=== PATIENT | male | born 1960 | race Caucasian/White ===

== ENCOUNTER 2022-01-30 15:35 | Outpatient (CLI) | payer BC ==
[2022-01-30 16:38] LABS: #Eosinphils 0.1 10x3/uL (0.0-0.5); #Monocytes 0.6 10x3/uL (0.0-1.1); %Basophils 0.3 % (0.0-2.0); %Eosinophils 1.5 % (0.0-6.0); %Lymphocytes 31.5 % (18.0-47.0); %Monocytes 8.5 % (0.0-10.0); %Neutrophils 57.9 % (40.0-75.0); Hemoglobin 15.4 g/dL (13.5-17.5); Mean Corpuscular HGB CONC 34.6 g/dL (32.0-36.0); Mean Corpuscular Hemoglobin 30.5 pg (27.0-33.0); Mean Corpuscular Volume 88.1 fl (81.2-95.1); Mean Platelet Volume 10.7 fl (7.4-10.4); Platelet Count 148 10x3/uL (150-450); RBC Distribution Width 12.9 % (11.5-14.5); Red Blood Cell (RBC) Count 5.05 10x6/uL (4.32-5.72); White Blood Cell (WBC) Count 6.8 10x3/uL (3.5-10.5)
[2022-01-30 16:49] LABS: Prothrombin Time 10.5 sec (9.5-12.1)
[2022-01-30 16:52] LABS: Anion Gap 15 mmol/L (10-20); BUN (Urea Nitrogen) 17 mg/dL (8.4-25.7); Calc. Creatinine Clearance 0 mL/min (70-130); Calcium 9.5 mg/dL (7.8-10.44); Carbon Dioxide 28 mmol/L (23-31); Chloride 102 mmol/L (98-107); Glucose 133 mg/dL (80-115); Potassium 4.4 mmol/L (3.5-5.1); Sodium 141 mmol/L (136-145)
[2022-01-31 00:19] LABS: SARS-CoV-2 PCR by NAA Not Detected (NotDetected)
== END 2022-01-30 15:36 | disposition home or self-care (01) ==
LOC: LABBT 15:35
PROVIDERS: ATTEND Orthopaedic Surgery
DX: Z01.812 Encounter for preprocedural laboratory examination (principal); M17.12 Unilateral primary osteoarthritis, left knee; Z20.822 Contact with and (suspected) exposure to COVID-19
CPT/HCPCS: 80048; 85025; 85610; 87081; U0003; U0005

== ENCOUNTER 2022-02-04 07:04 | Observation (INO) | payer BC ==
[2022-01-30 11:48] VITALS: BMI 37.2
[2022-02-04] MEDS ORDERED: Bupivacaine PF 0.5% 30 ML VIAL ONE ×2 (07:33→09:44)
[2022-02-04] MEDS ORDERED: Midazolam HCl 2 mg/2 ml Vial ONE (07:33)
[2022-02-04] MEDS ORDERED: Fentanyl 100 MCG/2 ML VIAL ONE ×2 (07:33→12:11)
[2022-02-04] MEDS ORDERED: VANCOMYCIN 2 GRAM/500 ML BAG 2 GM in Premix Bag 1 BAG IVPB SCH (08:00)
[2022-02-04] MEDS ORDERED: Fentanyl 100 MCG/2 ML VIAL SLOW IVP PRN (08:05)
[2022-02-04] MEDS ORDERED: Tranexamic Acid 1,000 MG/10 ML VIAL ONE (08:10)
[2022-02-04] MEDS ORDERED: Sodium Chloride 0.9% 100 ML ONE ×2 (08:10→09:27)
[2022-02-04] MEDS ORDERED: traMADol HCl 50 MG TAB PO PRN ×2 (08:15)
[2022-02-04] MEDS ORDERED: Ondansetron PF 4 MG/2 ML Vial IVP PRN (08:15)
[2022-02-04] MEDS ORDERED: Zolpidem Tartrate 5 MG TAB PO PRN (08:15)
[2022-02-04] MEDS ORDERED: HYDROcodone/Acetaminophen 10/325 mg Tablet PO PRN (08:15)
[2022-02-04] MEDS ORDERED: Promethazine HCl 25 MG/ML VIAL IM PRN (08:15)
[2022-02-04] MEDS ORDERED: Ropivacaine 0.2% 550 ML 550 ML NERVE BLCK SCH (08:15)
[2022-02-04] MEDS ORDERED: CEFAZOLIN 2 GM VIAL ONE (09:26)
[2022-02-04] MEDS ORDERED: Dexamethasone 20 MG/5 ML VIAL ONE (09:31)
[2022-02-04] MEDS ORDERED: Ondansetron PF 4 MG/2 ML Vial ONE (09:31)
[2022-02-04] MEDS ORDERED: Bupivacaine HCl 0.5%/Epinephrine 1:200,000/PF 30 ml Vial ONE (09:31)
[2022-02-04] MEDS ORDERED: Lidocaine 1% PF 5 ML VIAL ONE (09:31)
[2022-02-04] MEDS ORDERED: Ketorolac Tromethamine 30 MG/ML VIAL ONE (09:31)
[2022-02-04] MEDS ORDERED: PROPOFOL 200 MG/20 ML VIAL ONE (09:31)
[2022-02-04] MEDS ORDERED: ePHEDrine 50 MG/ML VIAL ONE (09:31)
[2022-02-04] MEDS ORDERED: Acetaminophen 325 MG TAB PO PRN (11:52)
[2022-02-04] MEDS ORDERED: diphenhydrAMINE 25 MG CAP PO PRN (11:52)
[2022-02-04] MEDS: Sodium Chloride 0.9% 1,000 ML IV SCH ×2 (13:30→22:37)
[2022-02-04] MEDS: Ketorolac Tromethamine 30 MG/ML VIAL IVP SCH ×2 (13:31→17:56)
[2022-02-04] MEDS: HYDROcodone/Acetaminophen 10/325 mg Tablet PO PRN ×2 (15:11→20:46)
[2022-02-04] MEDS ORDERED: ceFAZolin (BATCH) 2 GM in Premix Bag 1 BAG IVPB SCH (18:00)
[2022-02-04] MEDS: CEFAZOLIN 2 GM in Sodium Chloride 0.9% 100 ML IVPB SCH (18:11)
[2022-02-04] MEDS: Aspirin 81 mg Enteric Coated Tablet PO SCH (20:46)
[2022-02-04] MEDS ORDERED: Vancomycin 1.5 GRAM/300 ML BAG 1.5 GM in Premix Bag 1 BAG IVPB SCH (21:00)
[2022-02-05] MEDS: CEFAZOLIN 2 GM in Sodium Chloride 0.9% 100 ML IVPB SCH (01:03)
[2022-02-05] MEDS: Ketorolac Tromethamine 30 MG/ML VIAL IVP SCH ×3 (01:03→11:45)
[2022-02-05 05:37] LABS: Hemoglobin 12.3 g/dL (14.0-18.0); Mean Corpuscular HGB CONC 35.1 g/dL (32.0-36.0); Mean Corpuscular Hemoglobin 32.2 pg (27.0-31.0); Mean Corpuscular Volume 91.6 fL (78.0-98.0); Mean Platelet Volume 7.9 fL (7.4-10.4); Platelet Count 129 thou/uL (130-400); RBC Distribution Width 12.2 % (11.5-14.5); Red Blood Cell (RBC) Count 3.84 mill/uL (4.70-6.10); White Blood Cell (WBC) Count 8.3 thou/uL (4.8-10.8)
[2022-02-05] MEDS: Sodium Chloride 0.9% 1,000 ML IV SCH (07:56)
[2022-02-05] MEDS ORDERED: Ferrous Gluconate 324 MG TAB PO SCH (08:00)
[2022-02-05] MEDS: Aspirin 81 mg Enteric Coated Tablet PO SCH (08:04)
[2022-02-05] MEDS: HYDROcodone/Acetaminophen 10/325 mg Tablet PO PRN ×3 (08:05→16:12)
[2022-02-05] MEDS ORDERED: Multivitamin W/ Minerals 1 TAB PO SCH (09:00)
[2022-02-05] MEDS ORDERED: Senokot S 8.6-50 MG TAB PO SCH (09:00)
[2022-02-05 12:12] VITALS: BP 126/73; TEMP 97.6
== END 2022-02-05 17:30 | disposition home or self-care (01) ==
LOC: SDC 07:04 → SURG A 12:57
PROVIDERS: ADMIT Orthopaedic Surgery; ATTEND Orthopaedic Surgery
PROC: 0SRD0J9 Replacement of Left Knee Joint with Synthetic Substitute, Cemented, Open Approach (ICD-10-PCS; principal; 2022-02-04)
PROC: 3E0T3BZ Introduction of Anesthetic Agent into Peripheral Nerves and Plexi, Percutaneous Approach (ICD-10-PCS; 2022-02-04)
DX: M17.12 Unilateral primary osteoarthritis, left knee (principal); M21.162 Varus deformity, not elsewhere classified, left knee; I10 Essential (primary) hypertension; E78.5 Hyperlipidemia, unspecified; I25.2 Old myocardial infarction; Z87.891 Personal history of nicotine dependence; Z79.02 Long term (current) use of antithrombotics/antiplatelets; Z79.82 Long term (current) use of aspirin; Z79.899 Other long term (current) drug therapy; Z95.5 Presence of coronary angioplasty implant and graft; Z98.1 Arthrodesis status
CPT/HCPCS: 36415; 85027; 93005; 93010; 96365; 96375; 96376; A4306; C1713; C1776; G0378; J1100; J1885; J2250; J2405; J2704; J2795; J3010; J3370; J3490; S0020

== ENCOUNTER 2025-08-01 09:03 | Outpatient (CLI) | payer BC ==
[2025-08-01 10:30] LABS: #Basophils Less than 0.03 10x3/uL (0.0-0.2); #Eosinophils 0.15 10x3/uL (0.0-0.7); #Monocytes 0.53 10x3/uL (0.11-0.59); #Neutrophils 3.57 10x3/uL (1.40-6.50); %Basophils 0.3 % (0.0-1.0); %Eosinophils 2.6 % (0.0-10.0); %Lymphocytes 25.6 % (21.0-51.0); %Monocytes 9.2 % (0.0-10.0); %Neutrophils 62.0 % (42.0-75.0); Hematocrit 44.3 % (42.0-52.0); Hemoglobin 14.8 g/dL (14.0-18.0); Mean Corpuscular Hemoglobin 30.3 pg (27.0-31.0); Mean Corpuscular Volume 90.8 fL (78.0-98.0); Platelet Count 136 10x3/uL (130-400); Red Blood Cell (RBC) Count 4.88 mill/uL (4.70-6.10); White Blood Cell (WBC) Count 5.77 10x3/uL (4.8-10.8)
[2025-08-01 10:34] LABS: INR-International Normal Ratio 1.1; Prothrombin Time 14.0 sec (12.0-14.7)
[2025-08-01 10:42] LABS: ALT (SGPT) 54 U/L (Less than 45); AST (SGOT) 36 U/L (11-34); Albumin 4.0 g/dL (3.1-4.5); Alkaline Phosphatase 92 U/L (40-110); Anion Gap 15 mmol/L (10-20); BUN (Urea Nitrogen) 16 mg/dL (8.4-25.7); Bilirubin, Total 0.7 mg/dL (0.3-1.2); Calc. Creatinine Clearance 0 mL/min (70-130); Calcium 9.2 mg/dL (7.8-10.44); Carbon Dioxide 24 mmol/L (23-31); Chloride 104 mmol/L (98-107); Globulin 2.7 g/dL (2.4-3.5); Glucose 186 mg/dL (80-115); Potassium 4.4 mmol/L (3.5-5.1); Sodium 139 mmol/L (136-145)
== END 2025-08-01 09:04 | disposition home or self-care (01) ==
LOC: LABBT 09:03
PROVIDERS: ATTEND Orthopaedic Surgery
DX: Z01.818 Encounter for other preprocedural examination (principal); M17.11 Unilateral primary osteoarthritis, right knee
CPT/HCPCS: 80053; 85025; 85610; 87081

== ENCOUNTER 2025-08-01 09:58 | Outpatient (CLI) | payer BC | END 2025-08-01 09:59 | disposition home or self-care (01) | LOC: CT 09:58 | PROVIDERS: ATTEND Orthopaedic Surgery | DX: Z01.818 Encounter for other preprocedural examination (principal); M17.11 Unilateral primary osteoarthritis, right knee ==

== ENCOUNTER 2025-08-08 06:45 | Observation (INO) | payer BC ==
[2025-08-01 09:33] VITALS: BMI 36.6
[2025-08-08] MEDS ORDERED: Tranexamic Acid 1,000 MG/10 ML VIAL ONE (07:05)
[2025-08-08] MEDS ORDERED: VANCOMYCIN 2 GRAM/400 ML BAG ONE (07:05)
[2025-08-08] MEDS ORDERED: Bupivacaine 0.25% HCL 30 ML VIAL ONE (07:13)
[2025-08-08] MEDS ORDERED: Ropivacaine 0.5% HCl/PF (150 MG/30 ML VIAL) ONE (07:27)
[2025-08-08] MEDS ORDERED: Lidocaine 1% PF 5 ML VIAL ONE (08:00)
[2025-08-08] MEDS ORDERED: Ondansetron PF 4 MG/2 ML Vial IVP PRN ×2 (08:00→10:55)
[2025-08-08] MEDS ORDERED: Ropivacaine 0.2% 550 ML 550 ML NERVE BLCK SCH (08:00)
[2025-08-08] MEDS ORDERED: PROPOFOL 200 MG/20 ML VIAL ONE (08:37)
[2025-08-08] MEDS ORDERED: PHENYLEPHRINE-NS 100 MCG/ML 10 ML SYRINGE ONE (08:37)
[2025-08-08] MEDS ORDERED: Ondansetron PF 4 MG/2 ML Vial ONE (08:49)
[2025-08-08] MEDS ORDERED: diphenhydrAMINE 25 MG CAP PO PRN (10:55)
[2025-08-08] MEDS ORDERED: Metoprolol Succinate XL 25 MG ER.TAB PO SCH (10:55)
[2025-08-08] MEDS: Ketorolac Tromethamine 30 MG (1 mL) VIAL IVP SCH (14:21)
[2025-08-08] MEDS: Ferrous Gluconate 324 MG TAB PO SCH (16:43)
[2025-08-08] MEDS: Lisinopril 2.5 MG TAB PO SCH (16:43)
[2025-08-08] MEDS: metFORMIN 500 MG TAB PO SCH (16:43)
[2025-08-08] MEDS: Aspirin 81 mg Enteric Coated Tablet PO SCH (16:43)
[2025-08-08] MEDS: Senokot S 8.6-50 MG TAB PO SCH (16:44)
[2025-08-08] MEDS: Multivitamin W/ Minerals 1 TAB PO SCH (16:44)
[2025-08-08] MEDS: HYDROcodone/Acetaminophen 10/325 mg Tablet PO PRN ×2 (17:03→21:08)
[2025-08-09] MEDS: Acetaminophen 325 MG TAB PO PRN (00:33)
[2025-08-09 05:16] LABS: Hematocrit 37.6 % (42.0-52.0); Hemoglobin 12.7 g/dL (14.0-18.0); Mean Corpuscular Hemoglobin 31.3 pg (27.0-31.0); Mean Corpuscular Volume 92.6 fL (78.0-98.0); Platelet Count 127 10x3/uL (130-400); Red Blood Cell (RBC) Count 4.06 mill/uL (4.70-6.10); White Blood Cell (WBC) Count 7.16 10x3/uL (4.8-10.8)
[2025-08-09] MEDS: Metoprolol Succinate XL 25 MG ER.TAB PO SCH (08:44)
[2025-08-09] MEDS: FLU (Fluad Triv) 25-26 (65UP)PF 45 MCG/0.5 ML Syringe IM ONE (08:52)
[2025-08-09 12:20] VITALS: BP 109/55; TEMP 97.9
== END 2025-08-09 13:39 | disposition home or self-care (01) ==
LOC: SDC 06:45 → SURG A 14:40
PROVIDERS: ADMIT Orthopaedic Surgery; ATTEND Orthopaedic Surgery
PROC: 0SRC0JZ Replacement of Right Knee Joint with Synthetic Substitute, Open Approach (ICD-10-PCS; principal; 2025-08-08)
DX: M17.11 Unilateral primary osteoarthritis, right knee (principal); E78.5 Hyperlipidemia, unspecified; I25.10 Atherosclerotic heart disease of native coronary artery without angina pectoris; Z79.899 Other long term (current) drug therapy
CPT/HCPCS: 0055T; 27447; 36415; 85027; 90653; A4306; C1713; C1776; C1889; J0169; J0665; J1100; J1885; J2250; J2405; J2704; J2795; J3010; J3375